=== PATIENT | male | born 1955 | race Caucasian/White ===

== ENCOUNTER 2023-12-23 12:18 | Inpatient (IN) | payer OTHER, MEDICARE, SELFPAY ==
--- NOTE | 2023-12-06 11:28 | CM ---
Addendum entered by Johanny Mckeon 12/14/23 08:17:
Surgery date was changed to 12/22.
Original Note:
Patient is scheduled for an elective L THR on 01/12/24. Spoke with patient prior to surgery via telephone. Introduced role of Orthopedic Navigator. Patient reports that he lives with his in a bi level home. There are six steps to enter and five
steps to all living areas. He currently functions independently. He has a rolling walker, cane, long handled shoe horn and sock aid (he has been using dressing devices). He has never had VN services. PCP is Dr. Ketan Chi.
Discussed orthopedic program and post surgical plans. Reviewed that goal is for him to return home when directed by surgeon. Also reviewed outpatient PT. Patient is in agreement with tentative plan and will go directly to outpatient PT at [facility]
PT. He will have support from his when he goes home (she will be home with him for the weekend). His daughter lives close by and will be able to provide support if needed.
Patient will complete online education.
Plan: Orthopedic Navigator will remain available to assist with the care of patient and will reassess discharge needs after surgery.
[2023-12-16 08:20] VITALS: BMI 45.6
[2023-12-16 08:58] LABS: Hemoglobin 13.8 g/dL (13.0-18.0); Mean Corp Hgb Conc. 32.9 g/dL (33.0-37.0); Mean Corpuscular Hgb 29.4 pg (27.0-31.0); Mean Corpuscular Volume 89.4 fL (80.0-94.0); Mean Platelet Volume 10.4 fL (7.4-10.4); Platelet Count 176 10^3/uL (130-400); Red Cell Dist. Width 12.6 % (11.5-14.5); White Blood Cell Count 6.7 10^3/uL (4.8-10.8)
[2023-12-16 09:30] LABS: ALT (SGPT) 12 U/L (0-50); AST (SGOT) 21 U/L (17-59); Albumin 4.4 g/dl (3.5-5.0); Alkaline Phosphatase 106 U/L (38-126); Blood Urea Nitrogen 19 mg/dl (9-20); Calcium 9.6 mg/dl (8.4-10.2); Carbon Dioxide 30 mmol/L (22-30); Chloride 103 mmol/L (98-107); Estimated Creatinine Clearance > 125 ml/min; Glucose 100 mg/dl (70-99); Potassium 4.9 mmol/L (3.5-5.1); Sodium 140 mmol/L (135-145); Total Protein 7.1 g/dl (6.3-8.2); eGFR > 60.00
[2023-12-16 14:35] LABS: Glycohemoglobin (HgbA1c) 5.2 % (4.0-5.6)
[2023-12-19 12:01] VITALS: BMI 45.6
[2023-12-23] VITALS (9 sets, daily range): BP systolic 135–163; BP diastolic 65–92
[2023-12-23] MEDS: TYLENOL 650 MG PO ×3 (12:59→20:21)
[2023-12-23] MEDS: CELEBREX 200 MG PO (12:59)
[2023-12-23] MEDS: NORMOSOL-R 1000 IV ×2 (13:14→16:32)
--- NOTE | 2023-12-23 13:37 | CM ---
Reviewed chart. Patient admitted as planned for L THR. Met with patient and at bedside prior to surgery. Confirmed information previously obtained for assessment. Also discussed discharge plans. The plan is for patient to go home at discharge.
HIs will be with him at home.
He plans to go to outpatient PT at [facility]. He has an appointment on Tuesday12/26/23. Gave script for outpatient PT.
Patient has all needed DME at home. He reports he has been using hip kit tools at home. would like to attend therapy sessions on Tuesday with patient.
Patient will use [facility] pharmacy for discharge prescriptions.
--- NOTE | 2023-12-23 15:51 | OR.RPT ---
Operative Report
Operative Report
Orthopaedic Surgery Operative Note
DATE OF OPERATION: 12/23/2023
PREOPERATIVE DIAGNOSES: Osteoarthritis, left hip
POSTOPERATIVE DIAGNOSES: Same
OPERATION PERFORMED: Left total hip arthroplasty (01729 with 22 modifier for complexity)
SURGEON: Dariel Chapin MD
WORKFORCE DEVELOPMENT SPECIALIST: Noe Isbell PA-C who helped with patient and limb positioning and retraction
ANESTHESIA: Spinal
COMPLICATIONS: None.
ESTIMATED BLOOD LOSS: 100 mL.
DRAINS: None
SPECIMEN: None
FINDINGS: Advanced articular cartilage wear on the femoral head and acetabulum.
IMPLANTS:
Biomet G7 Acetabular Shell, cluster hole, size 54
Biomet G7 Highly Crosslinked PE Liner, neutral
Chapin M/L Taper femoral stem, size 12.5 with standard neck length and standard offset
Biolox Ceramic Head, size 40mm -3.5
INDICATIONS: The patient presented to my office with debilitating left hip pain due to osteoarthritis. We reviewed the natural history of this problem, as well as the risks, benefits, and alternatives of various treatment options. The patient
exhausted all nonoperative treatment options and wished to proceed with hip replacement surgery. The patient understood the risks which included, but were not limited to, bleeding, infection, failure to relieve pain, more pain than preop, damage to
blood vessels and nerves, need for reoperation, mechanical failure of the implants, wound healing problems, stiffness, instability, blood clot, pulmonary embolism, myocardial infarction, pneumonia, arrhythmia, CVA, and . The patient accepted
these risks and wished to proceed. All questions were answered, and informed consent was obtained.
PROCEDURE IN DETAIL: The patient was identified in the preoperative holding area. The left hip was identified as the operative site. The patient was taken in the operating room and transferred to the operative table. Spinal anesthesia was
performed. IV antibiotics and tranexamic acid were administered. The patient was placed in the lateral position with Stulberg hip positioners. Axillary roll was placed. The down leg was well padded. All bony prominences were well padded. The
operative limb was prepped and draped in the usual sterile fashion.
Time out was performed. A posterolateral approach to the hip was used. The skin incision was centered over the greater trochanter. This was taken down sharply through subcutaneous tissues. Meticulous hemostasis was achieved throughout the case with
electrocautery. We split the fascia caridad in line with skin incision. I split the gluteus romeo bluntly. We cauterized all crossing vessels as we split it. I palpated the sciatic nerve and made sure it was well posterior in the operative field. It
was protected throughout the case.
I performed a partial bursectomy to identify the short external rotators. The gluteus medius and minimus were identified and retracted anteriorly. I incised the piriformis tendon and conjoint tendon at their insertions. These were tagged for later
repair. I then performed a trapezoidal capsulotomy. The edges were tagged for later repair. I referenced the cut edge of the capsular flap to 2 fixed points on the greater trochanter for assistance with recreation of limb length and offset. I then
dislocated the hip posteriorly. The distance between the neck cut and center of the femoral head was measured to be 37.5mm. I performed a femoral neck osteotomy approximately 10 mm above the lesser trochanter, as per preoperative templating. The
femoral head measured 50 mm in outer diameter. I placed a curve hohmann retractor over the anterior lip of the acetabulum between the labrum and the anterior hip capsule. A second retractor was placed inferiorly just distal to the transverse
acetabular ligament. Circumferential view of the acetabulum was achieved. I incised the labrum and pulvinar with electrocautery. I started with a 49 mm reamer and reamed down to the medial wall. I then sequentially reamed up to a 53mm reamer. This
gave a nice bed of bleeding bone with excellent column support anteriorly and posteriorly. I impacted the acetabular shell in approximately 40 degrees of abduction and 20 degrees of anteversion. I matched the anteversion of the transverse acetabular
ligament. I also made sure that the anterior rim of the socket was not proud of the anterior wall to minimize the chance of iliopsoas tendinitis. I confirmed the cup was well-seated. I then impacted a neutral liner and confirmed it was well seated
with the locking mechanism.
On the femoral side, I use a box osteotome to open the proximal starting point. I found the canal with a Charnley awl and a lateralizing reamer. I then used the Chapin M/L taper broaches sequentially to prepare the femoral canal. The size 12.5 came
to a stop at the desired level and had excellent axial and rotational stability. We trialed with a trial ball head. The hip was taken through a complete range of motion. It was noted to be stable in extension without impingement. It was stable in
the position of sleep and in flexion with internal rotation. The limb length and offset were checked compared to the capsular flap and was appropriate. The measured length between the neck cut and center of the femoral head was 40mm.
I removed the trials. I impacted the femoral implant to match the conf[place] version. It had excellent axial and rotational stability. Trial ball head was placed, and I reduced the hip and took the hip through a complete range of motion. There was no
impingement in external rotation and extension. Position of sleep was stable. At 90 degrees of flexion and slight adduction, the hip could be internally rotated to 90 degrees with no subluxation. I palpated the sciatic nerve, which was tension free
and unharmed. Based on our capsular flap measurement, we had restored the offset and leg length. The trial ball head was removed, and the final ball head was impacted onto a clean and dry Man taper. The hip was reduced.
A dilute betadine soak was performed for approximately 3 minutes, and then the hip was copiously irrigated. I repaired the capsule, piriformis, and conjoint tendon with #2 Ethibond to drill holes in the greater trochanter. Local anesthetic was
injected. The fascia caridad was closed with #1 PDS in running fashion. The subcutaneous tissues were closed with 2-0 PDS in running fashion. The skin was reapproximated with 3-0 Monocryl subcuticular suture. I placed a Prineo dressing followed by a
Mepilex Ag dressing. The patient awoke from anesthesia without difficulty. Sponge and instrument counts were correct x2 at the end of the case.
I was present and participated in the entire procedure. I checked leg length at the ankles after transfer on the bed which was equal. The patient was sent to the recovery room in stable condition.
Of note, 22 modifier was added for complexity due to patient's BMI >45kg/m2 which required 20 additional minutes for positioning, exposure, and implanting the components.
Marshal Chapin MD
[2023-12-23] MEDS: ROXICODONE 5 MG PO (16:25)
--- NOTE | 2023-12-23 17:47 | PTCARENOTE ---
1700: Patient arrived to 2S. Full head to toe assessment completed/ B/L neurovascular assessment completed. L hip dressing clean dry and intact. IVF running per order. Call arce within reach and bed in the lowest position.
[2023-12-23] MEDS: ASPIRIN 325 MG PO (18:09)
[2023-12-23] MEDS: DECADRON 4 MG PO (20:21)
[2023-12-23] MEDS: SENOKOT 17.1999999999999993 MG PO (20:22)
[2023-12-23] MEDS: COLACE 100 MG PO (20:22)
[2023-12-23] MEDS: BACTROBAN 2% OINTMENT 1 APPLIC NASAL (22:15)
[2023-12-23] MEDS: ANCEF 5 IV (22:17)
[2023-12-23] MEDS: PEPCID 20 MG PO (22:17)
[2023-12-24] MEDS: TYLENOL PO ×2 (01:44→04:57)
[2023-12-24 03:35] VITALS: BP 125/70
[2023-12-24 07:18] VITALS: BP 141/71
[2023-12-24] MEDS: ASPIRIN 325 MG PO (07:31)
[2023-12-24] MEDS: CELEBREX 200 MG PO (07:31)
[2023-12-24] MEDS: TYLENOL 650 MG PO ×2 (07:31→11:44)
[2023-12-24] MEDS: SENOKOT PO (07:32)
[2023-12-24] MEDS: DECADRON 4 MG PO (07:32)
[2023-12-24] MEDS: COLACE PO (07:32)
[2023-12-24] MEDS: BACTROBAN 2% OINTMENT 1 APPLIC NASAL (07:33)
[2023-12-24] MEDS: ANCEF 5 IV (07:33)
[2023-12-24 08:48] VITALS: BP 138/76; PULSE 81; O2SAT 99
[2023-12-24 09:25] VITALS: BP 138/76; BP 148/72; PULSE 79
[2023-12-24 11:10] VITALS: BP 132/69
--- NOTE | 2023-12-24 11:39 | W.PN.ORTHO ---
Today's Communication / Plan
-
68-year-old male POD 1 L NIEVES performed under the direction of Dr. Chapin 12/23/2023.
- WBAT LLE with use of walker for assistance.
- PT/OT.
- THP's.
- Patient stable for discharge to home. Scheduled to begin outpatient physical therapy this upcoming week. Postoperative medications were sent to the patient's pharmacy on file.
- Mepilex dressing to remain intact.
- Patient will follow-up in the office 2 weeks postop for his first postoperative visit.
Assessment
.
Distal Motor Intact: Yes
Dressing:
Clean, dry and intact.
Assessment:
POD #[address] Chapin 12/23/2023
Plan
.
Surgery / Date: L NIEVES / 12/23/2023
DVT Prophylaxis: Aspirin
Activity:
Out of bed.
PT/OT
Discharge Plan: Home
Subjective
.
.:
Patient resting comfortably. Reports pain is well controlled.
Vital Signs and Labs
.
Vital Signs and Labs:
Lab Results
12/16/23 08:13
12/16/23 08:13
Temp Pulse Resp BP Pulse Ox
98.0 F 62 14 132/69 97
12/24/23 11:10 12/24/23 11:10 12/24/23 11:10 12/24/23 11:10 12/24/23 11:10
Physical Exam
-
Physical examination of the left hip reveals Mepilex dressing to be clean, dry, and intact. No surrounding erythema, significant warmth, or ecchymosis. Able to plantarflex and dorsiflex left ankle. Calf is soft and nontender to palpation.
Patient is neurovascularly intact distally. Ambulating with assistance of a walker.
--- NOTE | 2023-12-24 12:05 | W.DS.TRANS ---
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
-
Discharge Instructions:
Sleep Apnea Risk High
Discharge Diagnosis/Procedures L hip OA s/p L NIEVES w/ Dr Chapin 12/23/23
Diet Regular
Activity As tolerated,With Walker
Driving Restrictions Not until seen by your Dr
Bathing Restrictions OK to Shower
Other Services PT
Wound Care Leave dressing on until seen by your surgeon's
office in 2 weeks.
Instructions:
Stand-Alone Forms: Total Hip/Knee Replacement D/C
Changes to Home Medications: No
Discharge Medications:
DC Medications w/original date entered in [employer]
alfuzosin 10 mg tablet,extended release 24 hr 10 mg PO QPM Urinary Issue 12/14/23
losartan 50 mg tablet 100 mg PO QPM Blood Pressure 12/14/23
acetaminophen 325 mg tablet 650 mg (2 x 325 mg) PO Q4HWA Pain #30 tabs 12/24/23
aspirin 325 mg tablet 325 mg PO DAILY Blood clot prevention/tx 4 weeks #28 tabs 12/24/23
celecoxib 100 mg capsule (Celebrex) 100 mg PO BID Anti-inflammatory #30 caps 12/24/23
dexamethasone 4 mg tablet 4 mg PO BID #5 tabs 12/24/23
docusate sodium 100 mg capsule 100 mg PO BID PRN Constipation #30 caps 12/24/23
mupirocin 2 % topical ointment 1 applic intranasal BID Prophylaxis 5 days #1 tube 12/24/23
ondansetron HCl 4 mg tablet 4 mg PO Q6H PRN nausea and vomiting #30 tabs 12/24/23
oxycodone 5 mg tablet 5 mg PO Q4HPRN PRN moderate pain #30 tabs 12/24/23
Home Medication Changes
Pending Results: No
Total time spent discharging patient (in min): 45 Minutes
--- NOTE | 2023-12-29 08:49 | SLEEP.APNEA ---
Sleep Apnea Order
-
Patient screened as High Risk for Sleep Apnea on Stop Bang Questionnaire. Patient referred to [facility] for Pre-Study.

Name: MARCELO SWANN
: 1955
Home Phone: Use [email or web address] instead
Cell Phone: [f_Reg Other Phone]
Work Phone:
Address: [facility]
City: [place]
State: [place]
Zip: [f_[facility] Zip]
Family Physician: Ketan Chi
Height 5 ft 6 in
Actual Weight 128.2 kg
Body Mass Index (BMI) 45.6
Ordering Provider: Nuris Gabriel PA-C
== END 2023-12-24 13:26 | disposition home or self-care (01) | DRG 470 ==
LOC: 2 SOUTH 12:18
PROVIDERS: ADMITTING PHYSICIAN Orthopaedic Surgery; FAMILY PHYSICIAN Family Medicine
PROC: 0SRB03A Replacement of Left Hip Joint with Ceramic Synthetic Substitute, Uncemented, Open Approach (ICD-10-PCS; 2023-12-23)
DX: M16.12 Unilateral primary osteoarthritis, left hip (principal); Z68.42 Body mass index [BMI] 45.0-49.9, adult; E66.01 Morbid (severe) obesity due to excess calories
CPT/HCPCS: 36415; 73502; 80053; 83036; 85027; 87070; 93005; 97116; 97161; 97166; 97535; C1776

== ENCOUNTER → 2024-05-21 09:20 | Outpatient (REF) | payer OTHER, SELFPAY ==
[2024-05-21 12:20] LABS: % Basophils 0.8 % (0-2); % Eosinophils 2.9 % (0-6); % Immature Granulocytes 0.7 % (0-0.5); % Lymphocytes 21.3 % (20.5-51.1); % Monocytes 5.9 % (1.7-9.3); % Neutrophils 68.4 % (42.2-75.2); Absolute Basophils 0.1 10^3/uL (0-0.2); Absolute Eosinophils 0.2 10^3/uL (0-0.7); Absolute Lymphocytes 1.3 10^3/uL (1.2-3.4); Absolute Monocytes 0.4 10^3/uL (0.1-0.6); Absolute Neutrophils 4.2 10^3/uL (1.4-6.5); Hematocrit 36.7 % (39.0-52.0); Hemoglobin 11.9 g/dL (13.0-18.0); Mean Corp Hgb Conc. 32.4 g/dL (33.0-37.0); Mean Corpuscular Hgb 28.1 pg (27.0-31.0); Mean Corpuscular Volume 86.6 fL (80.0-94.0); Mean Platelet Volume 10.9 fL (7.4-10.4); Nucleated Red Blood Cells % 0 % (-); Platelet Count 198 10^3/uL (130-400); Red Blood Cell Count 4.24 10^6/uL (4.70-6.10); Red Cell Dist. Width 13.9 % (11.5-14.5); White Blood Cell Count 6.1 10^3/uL (4.8-10.8)
[2024-05-21 12:33] LABS: Blood Urea Nitrogen 17 mg/dl (9-20); Calcium 9.2 mg/dl (8.4-10.2); Carbon Dioxide 29 mmol/L (22-30); Chloride 102 mmol/L (98-107); Glucose 98 mg/dl (70-99); Potassium 4.7 mmol/L (3.5-5.1); Sodium 142 mmol/L (135-145); eGFR > 60.00
== END ==
LOC: HWLAB 09:20
PROVIDERS: ATTENDING PHYSICIAN Student in an Organized Health Care Education/Training Program; FAMILY PHYSICIAN Family Medicine
DX: Z01.818 Encounter for other preprocedural examination (principal)
CPT/HCPCS: 36415; 80048; 85025; 93005

== ENCOUNTER 2024-08-06 07:16 | Outpatient (RCR) | payer OTHER, SELFPAY | END 2024-08-06 23:59 | disposition home or self-care (01) | LOC: RPT 07:16 | PROVIDERS: ATTENDING PHYSICIAN Student in an Organized Health Care Education/Training Program; FAMILY PHYSICIAN Family Medicine | DX: M76.60 Achilles tendinitis, unspecified leg (principal); M25.571 Pain in right ankle and joints of right foot; Z73.6 Limitation of activities due to disability | CPT/HCPCS: 97162; 97530; 97760 ==

== ENCOUNTER 2024-08-23 11:02 | Outpatient (RCR) | payer OTHER, SELFPAY | END 2024-08-23 23:59 | disposition home or self-care (01) | LOC: RPT 11:02 | PROVIDERS: ATTENDING PHYSICIAN Student in an Organized Health Care Education/Training Program; FAMILY PHYSICIAN Family Medicine | DX: M76.60 Achilles tendinitis, unspecified leg (principal); M25.571 Pain in right ankle and joints of right foot; Z73.6 Limitation of activities due to disability; R26.2 Difficulty in walking, not elsewhere classified; M62.81 Muscle weakness (generalized) | CPT/HCPCS: 97530; 97763 ==

== ENCOUNTER 2024-09-21 10:53 | Outpatient (RCR) | payer OTHER, SELFPAY | END 2024-09-21 11:38 | disposition home or self-care (01) | LOC: RPT 10:53 | PROVIDERS: ATTENDING PHYSICIAN Student in an Organized Health Care Education/Training Program; FAMILY PHYSICIAN Family Medicine | DX: M76.60 Achilles tendinitis, unspecified leg (principal); M76.61 Achilles tendinitis, right leg (principal); M25.571 Pain in right ankle and joints of right foot; Z73.6 Limitation of activities due to disability; R26.2 Difficulty in walking, not elsewhere classified; M62.81 Muscle weakness (generalized) | CPT/HCPCS: 97530 ==

== ENCOUNTER → 2024-09-25 07:14 | Outpatient (REF) | payer OTHER, SELFPAY | LOC: HWRAD 07:14 | PROVIDERS: ATTENDING PHYSICIAN Internal Medicine Cardiovascular Disease; FAMILY PHYSICIAN Family Medicine | DX: R60.9 Edema, unspecified (principal); R01.1 Cardiac murmur, unspecified | CPT/HCPCS: 93306; 93970 ==

== ENCOUNTER → 2024-11-23 07:19 | Outpatient (REF) | payer OTHER, SELFPAY | LOC: RAD 07:19 | PROVIDERS: ATTENDING PHYSICIAN Family Medicine | DX: I82.412 Acute embolism and thrombosis of left femoral vein (principal) | CPT/HCPCS: 93971 ==

== ENCOUNTER → 2024-11-26 07:20 | Outpatient (REF) | payer OTHER, SELFPAY | LOC: HWRAD 07:20 | PROVIDERS: ATTENDING PHYSICIAN Surgery; FAMILY PHYSICIAN Family Medicine | DX: R10.13 Epigastric pain (principal) | CPT/HCPCS: 76700 ==

== ENCOUNTER 2025-02-21 06:27 | Day surgery (SDC) | payer OTHER, SELFPAY ==
[2025-02-21] VITALS (12 sets, daily range): BP systolic 0–144; BP diastolic 50–80; BMI 39.4; BMI 39.9
[2025-02-21] MEDS: TYLENOL 1000 MG PO (08:32)
[2025-02-21] MEDS: NORMOSOL-R/PLASMALYTE-A 1000 IV (08:33)
[2025-02-21] MEDS: IC GREEN 2.5 MG IV (09:01)
--- NOTE | 2025-02-21 09:01 | W.SUR.PREOP ---
Pre-Operative Surgical Note
-
I have examined this patient prior to the performance of the scheduled procedure.
The patient's condition is unchanged from the time of the current History and
Physical and the patient is able to undergo the scheduled procedure.
--- NOTE | 2025-02-21 09:01 | HP.FOC2 ---
Focused History & Physical
Chief Complaint
HPI:
Chief Complaint:
Biliary colic
HPI / Indication for Planned Procedure:
This is a 69-year-old male who presents with biliary colic. Will plan for robotic cholecystectomy, possible cholangiogram.
Relevant Past Medical History: Negative
Relevant Social History: Negative
Relevant Family History: Negative
Relevant Past Surgical History: Negative
Review of Systems
Review of Pertinent Systems: All Systems Negative
Medication
See Medication form for detailed medications: Yes
Medication List (including Herbals & OTC):
alfuzosin 10 mg tablet,extended release 24 hr 10 mg PO QPM Urinary Issue 12/14/23
losartan 50 mg tablet 50 mg PO QPM Blood Pressure 12/14/23
acetaminophen 325 mg tablet 650 mg (2 x 325 mg) PO Q4HWA Pain #30 tabs 12/24/23
tirzepatide (weight loss) 5 mg/0.5 mL subcutaneous pen injector (Zepbound) 5 mg SC QWEEK 02/15/25
furosemide 20 mg tablet 20 mg PO .3XSWEEK 02/21/25
Medications Reviewed: Yes
Allergies and Reactions
Patient has Allergies: No
Noted Allergies and Reactions:
Allergy/AdvReac Type Severity Reaction Status Date / Time
No Known Allergies Allergy Verified 02/21/25 08:12
Pertinent Physical Exam
All Other Systems: Negative
Head/Neck: Normal
Diagnosis / Assessment
This is a 69-year-old male who presents with biliary colic.
Plan / Procedure
Will plan for robotic cholecystectomy, possible cholangiogram.
Anesthesia/Sedation to be done by Anesthesia Provider: Yes
--- NOTE | 2025-02-21 12:45 | W.IMMPOSTOP ---
Surgical Immed Post Op Note
-
Primary Surgeon: Shahram Amador MD
Assisting Surgeon: Rafat Hutchins MD
Lead Manufacturing Technician: JOS EELIAS Dinh
Pre-op Diagnosis: Biliary colic
Post-op Diagnosis: Severe chronic cholecystitis
Procedure Performed: Robotic cholecystectomy +22 modifier
Anesthesia Type: General
Specimen / Cultures: Gallbladder and contents
Estimated Blood Loss: 51 cc
Complications: None
Operative Findings: High liver, well above the costal margin. Fundus identified but there was severe adhesions to the anterior surface of the gallbladder, additional 8 mm port placed and camera moved to a more superior location to get a better
angle on the relevant anatomy. Lead Manufacturing Technician port used. Dr. Hutchins was called in to assist as no other qualified shipping assistant was available to help exposure of the infundibulum and is very challenging gallbladder. There was spillage of bile but no
obvious spillage of stones. The use of ICG was somewhat limited. The cystic artery was entered at multiple points but eventually controlled with bipolar cautery and Weck clips. The cystic duct was identified and ligated with 3 Weck clips. A 19
Urdu round Mp drain was introduced through the right lateralmost port and secured to the skin with a 2-0 nylon after draping and across our surgical bed/field.
POST OP PLAN:
Imaging: None
Labs: Routine AM
Diet: Clears
Analgesia: Tylenol 650mg q6 Abelino, Tamanna 5mg q6 PRN, Dilaudid 0.5mg q2h PRN
Neuro/vascular checks: q4h
AC/AP: Hold Therapeutic AC, Ok for DVT PPx
Activity: Ad Jazzmine
Wound/Incisions/Drains: Routine, NORA to bulb suction
Abx: Will do 4 days of Zosyn/Augmentin
Dispo: RNF, anticipate discharge home tomorrow versus Tuesday pending clinical course +/- drain.
[2025-02-21] MEDS: ZOSYN 50 IV ×2 (13:41→20:41)
[2025-02-21] MEDS: TORADOL 10 MG IV ×3 (16:04→23:13)
[2025-02-21] MEDS: TYLENOL 650 MG PO ×2 (16:15→20:41)
[2025-02-21] MEDS: LOVENOX 40 MG SC (18:24)
[2025-02-21] MEDS: TORADOL IV (18:25)
[2025-02-22] MEDS: TYLENOL PO ×2 (00:47→11:47)
[2025-02-22] MEDS: ZOSYN 50 IV ×3 (02:42→13:14)
[2025-02-22] MEDS: TYLENOL 650 MG PO ×2 (04:40→07:54)
[2025-02-22] MEDS: TORADOL 10 MG IV ×2 (04:41→09:57)
[2025-02-22 07:10] VITALS: BP 123/66
[2025-02-22 07:31] LABS: Hematocrit 36.9 % (39.0-52.0); Hemoglobin 12.3 g/dL (13.0-18.0); Mean Corp Hgb Conc. 33.3 g/dL (33.0-37.0); Mean Corpuscular Volume 88.7 fL (80.0-94.0); Nucleated Red Blood Cells % 0 % (-); Platelet Count 175 10^3/uL (130-400); Red Cell Dist. Width 13.1 % (11.5-14.5)
[2025-02-22 07:45] LABS: ALT (SGPT) 22 U/L (0-50); AST (SGOT) 34 U/L (17-59); Albumin 4.0 g/dl (3.5-5.0); Alkaline Phosphatase 104 U/L (38-126); Blood Urea Nitrogen 16 mg/dl (9-20); Calcium 8.6 mg/dl (8.4-10.2); Carbon Dioxide 25 mmol/L (22-30); Chloride 103 mmol/L (98-107); Estimated Creatinine Clearance 97 ml/min; Glucose 107 mg/dl (70-99); Potassium 4.1 mmol/L (3.5-5.1); Sodium 136 mmol/L (135-145); Total Protein 6.3 g/dl (6.3-8.2); eGFR > 60.00
[2025-02-22] MEDS: FLOMAX 0.4 MG PO (07:54)
--- NOTE | 2025-02-22 09:37 | CM ---
CM following re: discharge planning.
Reviewed pt's chart, met with pt.
Pt is a 69 year old male, admitted with primary dx of POD#1 Robotic cholecystectomy
Pt reports he lives with spouse 2SH, 5 steps to enter, has 2 supportive children. 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
Discharge order noted. Pt is aware, stated he feels great and his spouse will transport him home.
No after care VN needs identified.
PCP: Eugene Sarmiento
Pharmacy: [facility]
D/C plan: home no needs. Spouse to transport.
--- NOTE | 2025-02-22 09:47 | W.DS.TRANS ---
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
-
Discharge Instructions:
Sleep Apnea Risk Intermediate
Discharge Diagnosis/Procedures Biliary colic. Robotic cholecystectomy
Diet No restrictions,As tolerated
Activity No strenuous activity
Driving Restrictions As prior to admission
Bathing Restrictions OK to Shower
Wound Care Cover your prior drain site with a clean
dressing and change daily until drainage no
longer present, then ok to leave open to air. Ok
to remove dressing for showers.
Instructions:
Stand-Alone Forms:
Changes to Home Medications: No
Discharge Medications:
DC Medications w/original date entered in [employer]
alfuzosin 10 mg tablet,extended release 24 hr 10 mg PO QPM Urinary Issue 12/14/23
losartan 50 mg tablet 50 mg PO QPM Blood Pressure 12/14/23
acetaminophen 325 mg tablet 650 mg (2 x 325 mg) PO Q4HWA Pain #30 tabs 12/24/23
tirzepatide (weight loss) 5 mg/0.5 mL subcutaneous pen injector (Zepbound) 5 mg SC QWEEK 02/15/25
furosemide 20 mg tablet 20 mg PO .3XSWEEK 02/21/25
ibuprofen 600 mg tablet 600 mg PO Q6H PRN pain #14 tabs 02/21/25
tramadol 50 mg tablet 25 mg (1/2 x 50 mg) PO Q6HPRN PRN severe pain/breakthrough pain #8 tabs 02/21/25
amoxicillin 875 mg-potassium clavulanate 125 mg tablet 1 tab PO Q12 antibiotic #7 tabs 02/22/25
Home Medication Changes
Pending Results: No
--- NOTE | 2025-02-22 10:36 | W.PN.GS2 ---
Addendum entered and electronically signed by Shahram Amador MD 02/22/25 16:09:
I saw and examined the patient independently.
The resident's documentation was reviewed and I agree with the note, assessment and plan except where noted below.
Comment: 69-year-old male postoperative day 1 from a robotic cholecystectomy for chronic cholecystitis.
Drain removed at bedside.
Antibiotics x 4 days.
DC home today.
Original Note:
Today's Communication / Plan
-
--Remove drain
--Prescribe pain meds for home
--Continue Abx for 4 days
--Patient advised on diet advancement at home
--Ready for discharge.
Assessment / Plan
-
69 y/o M s/p robotic cholecystectomy for severe chronic cholecystitis
POD#1: Clinically stable, recovering well
--Remove Drain
--Prescribe at home pain meds
--Continue Abx for 4 days
--Continue to advance diet at home
--Patient should stay away from fatty oily foods for few weeks post op
--Ready for discharge
Time Spent
Total Time Spent with Patient (in minutes): 35
Subjective Data
-
Date of Service: February 22, 2025
69 y/o M w/ a PMH of morbid obesity, and left inguinal hernia (1972), presents s/p robotic cholecystectomy for severe chronic cholecystitis. Patient was initially admitted with postprandial RUQ pain and upon further U/S imaging was found to have
gallstones. Patient currently denies any nausea, vomiting, fever, chills, bowel movements and abdominal pain. He rates his pain a 3/10 and refused Dilaudid, instead taking Tylenol PRN. Patient has just started passing some gas today. He is
ambulating OOB well and also tolerating his clears diet. He's not in any lambert to eat much solids because he states he's not really hungry, as he's been dieting. Patient is in good spirits and expresses his wish to be discharged today.
Objective Data
-
Intake and Output
02/21/25 02/22/25 02/23/25
06:59 06:59 06:59
Intake Total 980 / 980
Output Total 40 / 40
Balance 940 / 940
Intake:
Oral fluids 630 / 630
IV fluids (Total) 350 / 350
Zosyn 50 / 50
normosol 300 / 300
Output:
Drain Output (Total) 40 / 40
Right Lower Abdomen Chip- 40 / 40
Quiroga
Other:
Number of approximated MODERATE 3
amounts of urine
Vital Signs
Temp Pulse Resp BP Pulse Ox
97.9 F 60 18 123/66 98
02/22/25 07:10 02/22/25 07:10 02/22/25 07:10 02/22/25 07:10 02/22/25 07:10
Lab Results
02/22/25 06:22
02/22/25 06:22
Calcium 8.6 mg/dl (8.4-10.2) 02/22/25 06:22
Total Bilirubin 2.2 mg/dl (0.2-1.3) H 02/22/25 06:22
AST 34 U/L (17-59) 02/22/25 06:22
ALT 22 U/L (0-50) 02/22/25 06:22
Alkaline Phosphatase 104 U/L (38-126) 02/22/25 06:22
Total Protein 6.3 g/dl (6.3-8.2) 02/22/25 06:22
Albumin 4.0 g/dl (3.5-5.0) 02/22/25 06:22
AFVSS: Afebrile, mildly hypotensive.
Labs: While WBC is still high (12.3), that is to be expected as patient just had his procedure.
Physical Exam
-
General: NAD
AAAOx3
Chest: No labored breathing
Abdomen: Mild distension and TTP near drain site. Drain site healing well. Fluid output serosanguinous. Drain was removed by Dr. Wallace.
Patient has a guevara catheter: No
Patient has a central line: No
[2025-02-22 11:10] VITALS: BP 101/51
--- NOTE | 2025-02-28 14:01 | OR.RPT ---
Operative Report
Operative Report
Patient Name: Beau Haque
: 1955
Date of Operation: 02/21/2025
Preoperative Diagnosis: Symptomatic Cholelithiasis
Postoperative Diagnosis: Severe chronic cholecystitis
Procedure(s):
Robotic Cholecystectomy +22 modifier
Surgeon(s):
Dr. Amador
Eight Arm Operator(s):
Rafat Hutchins MD
JOSE ELIAS Dinh
Anesthesia: General
Estimated Blood Loss: 51 cc
Urine Output: None
Drains/Lines/Implants: None
Specimens:
1. Gallbladder and contents
HPI/Surgical Indications:
This is a a 69-year-old male with morbid obesity (BMI 40) who presented to my office with abdominal pain. Exam, labs and imaging are consistent with symptomatic cholelithiasis. Risks/Benefits/Alternatives were discussed at length, and the patient
agreed to proceed with surgery.
Operative Findings: High liver, well above the costal margin. Fundus identified but there was severe adhesions to the anterior surface of the gallbladder, additional 8 mm port placed and camera moved to a more superior location to get a better
angle on the relevant anatomy. Eight Arm Operator port used. Dr. Hutchins was called in to assist as no other qualified resident assistant cna was available to help exposure of the infundibulum and is very challenging gallbladder. There was spillage of bile but no
obvious spillage of stones. The use of ICG was somewhat limited. The cystic artery was entered at multiple points but eventually controlled with bipolar cautery and Weck clips. The cystic duct was identified and ligated with 3 Weck clips. A 19
[place] round Mp drain was introduced through the right lateralmost port and secured to the skin with a 2-0 nylon after draping and across our surgical bed/field.
Procedure Description:
The patient was brought to the Operating Room and placed in the supine position with arms tucked. IV antibiotics were infused and sequential compression devices were confirmed to be on. Following uneventful induction of general endotracheal
anesthesia, an orogastric tube was placed. The abdomen was prepped and draped in the usual sterile fashion. The abdomen was entered using a Veress technique at Horan's point followed by a 8 mm trocar in the left upper quadrant. Pneumoperitoneum
to 15 mmHg pressure was obtained without difficulty and we confirmed that no injury had occurred during our entry. The patient was positioned in reverse trendelenberg and rotated with the right side up slightly. Three (3) 8mm trocars were then
placed along the abdomen transversely. The gallbladder was noted to be severely inflamed with significant adhesions overlying the fundus and inferior surface of the gallbladder. In addition the liver was quite high above the costal margin which
made exposure and retraction somewhat difficult. An additional 8 mm port was placed higher up and the camera was moved to this location to give us a better vantage point over the target anatomy. Carefully the adhesions overlying the gallbladder
were brought down. The cystic artery was entered at multiple points during the dissection but controlled with bipolar cautery and ultimately two Weck clips. I did have Dr. Hutchins come in briefly to assist with the procedure as the infundibulum
was quite scarred in. Eventually we were able to free up the infundibular portion of the gallbladder and the cystic duct was identified and isolated. The duct was ligated with 2 Weck clips on the proximal side and 1 with clip on the specimen side.
The remaining soft tissue attachments of the gallbladder to the liver bed were then divided using electrocautery. There was spillage of bile, but no stones. The gallbladder bed was inspected and excellent hemostasis was obtained. Given the degree
of inflammation and contamination a 19 [place] round Mp drain was introduced to the right lateralmost port passed across the field and secured to the skin with a 2-0 nylon suture. The gallbladder was placed in an Endo Catch bag and removed
through the midline port which was then closed with a 0 PDS [id number] on a Adán Joiner. All trocar sites were closed at the skin level using 4-0 Monocryl followed by Dermabond. Overall, the patient tolerated the procedure well and was
taken to the Recovery Room postoperatively in stable condition.
I was the attending physician and performed the procedure with assistance of the PA above. The assistance of JOSE ELIAS Dinh was required due to the complexity of the procedure. During the procedure Tory assisted with port placement, instrument
and needle exchanges, and closure of the wound. Dr. Hutchins performed part of the operation of the console exposing the infundibulum of the gallbladder while I provided additional countertraction at the bedside through the resident assistant cna port. I was
present for all portions of the case, excluding skin closure. A 22 modifier is being requested for this case as this cholecystectomy was significantly more challenging and required additional ports/equipment than a typical case due to his obesity,
anatomy and significant scar tissue.
Shahram Amador MD
== END 2025-02-22 14:44 | disposition home or self-care (01) ==
LOC: SDS 06:27
PROVIDERS: ATTENDING PHYSICIAN Surgery
DX: K80.12 Calculus of gallbladder with acute and chronic cholecystitis without obstruction (principal); E66.01 Morbid (severe) obesity due to excess calories; Z68.41 Body mass index [BMI] 40.0-44.9, adult
CPT/HCPCS: 47562; 80053; 85025; 88304; A4300

== ENCOUNTER 2025-04-30 06:08 | Day surgery (SDC) | payer OTHER, SELFPAY ==
[2025-04-30 13:40] VITALS: BMI 38.5
[2025-04-30 13:45] VITALS: BP 144/65
[2025-04-30 13:56] VITALS: BMI 38.5
[2025-04-30 17:10] VITALS: BP 110/69
[2025-04-30 17:15] VITALS: BP 126/66
[2025-04-30 17:30] VITALS: BP 128/74
== END 2025-04-30 17:45 | disposition home or self-care (01) ==
LOC: GI 06:08
PROVIDERS: ATTENDING PHYSICIAN Surgery
DX: Z12.11 Encounter for screening for malignant neoplasm of colon (principal); D12.4 Benign neoplasm of descending colon; Q43.8 Other specified congenital malformations of intestine; K56.2 Volvulus; K64.8 Other hemorrhoids
CPT/HCPCS: 45385; 88305